=== PATIENT | male | born 1970 | race Caucasian/White ===

== ENCOUNTER 2021-02-06 10:09 | Inpatient (IN) | payer BC ==
[~2021-02-06] VITALS: Ht 170.2 cm; Wt 96.2 kg
[2021-02-06 10:41] LABS: ABSOLUTE BASOPHILS 0.1 thou/uL (0.0-0.2); ABSOLUTE EOSINOPHILS 0.2 thou/uL (0.0-0.7); ABSOLUTE LYMPHOCYTES 1.7 thou/uL (0.8-5.3); ABSOLUTE MONOCYTES 0.5 thou/uL (0.0-1.2); ABSOLUTE NEUTROPHILS 6.6 thou/uL (1.6-8.1); BASOPHILS 0.7 %; EOSINOPHILS 1.9 %; HEMATOCRIT 45.6 % (42.0-52.0); HEMOGLOBIN 15.9 gm/dL (14.0-18.0); LYMPHOCYTES 18.5 %; MCH 28.4 pg (26.0-34.0); MCHC 34.8 g/dL (28.0-37.0); MCV 81.7 fL (80.0-100.0); MONOCYTES 5.9 %; MPV 9.7 fl. (7.2-11.1); NUCLEATED RBCS 0 /100WBC; PLATELET COUNT* 187 thou/uL (150-400); RBC 5.58 mil/uL (4.50-6.00); RDW-CV 13.4 % (10.5-14.5); WBC 9.1 thou/uL (4.0-11.0)
[2021-02-06 10:43] LABS: URINE BILIRUBIN NEGATIVE (Negative); URINE BLOOD NEGATIVE (Negative); URINE CLARITY CLEAR; URINE COLOR YELLOW; URINE GLUCOSE-RANDOM NEGATIVE (Negative); URINE KETONES NEGATIVE (Negative); URINE LEUKOCYTES-REFLEX TRACE (Negative); URINE NITRITE-REFLEX NEGATIVE (Negative); URINE PROTEIN NEGATIVE (Negative); URINE SPECIFIC GRAVITY 1.015 (1.005-1.030); URINE UROBILINOGEN 0.2 E.U./dl (0.2-1.0)
[2021-02-06 10:49] LABS: BACTERIA-REFLEX 1-9 Few /HPF (None Seen); CALCIUM 8.5 mg/dL (8.5-10.1); CASTS None Seen /LPF (None Seen); CREATININE 0.8 mg/dL (0.6-1.3); POTASSIUM 3.7 mmol/L (3.5-5.1); SQUAMOUS 0-3 Few /LPF (0-3); URINE RBC 0-2 Rare /HPF (0-2); URINE WBC-REFLEX 0-5 Rare /HPF (0-5)
[2021-02-06 10:50] LABS: CRYSTALS None Seen /LPF (None Seen)
[2021-02-06 10:53] LABS: ALBUMIN 3.7 g/dL (3.4-5.0); TOTAL BILIRUBIN 0.7 mg/dL (<0.1-1.0); TOTAL PROTEIN 7.4 g/dL (6.4-8.2)
[2021-02-06] MEDS ORDERED: PREDNISONE50 MG PO (13:16)
[2021-02-06] MEDS ORDERED: FLEXERIL PO (13:16)
[2021-02-06] MEDS ORDERED: BACTRIM DS TAB1 EAC1 PO (13:16)
[2021-02-06] MEDS ORDERED: HYDROCODON-ACE1 EAC7 PO (13:16)
[2021-02-06] MEDS ORDERED: IBUPROFEN 800800 M1 PO (13:16)
--- NOTE | 2021-02-06 13:45 | EKG ---
[place] [address] ELECTROCARDIOGRAM REPORT Name: CHINYERE ACOSTA Room: [facility]#: [id number] Admission: 02/06/21 Attend Phys: Discharge: Date of : 74 Date of Service: 02/06/21 1024 Report #: [id number] THIS REPORT FOR: //name// [facility] ED Test Date: 2021-02-06 Test Time: 10:24:31 Pat Name: CHINYERE ACOSTA Department: Room: Gender: [employer]: : [id number] Requested By: Juan Luis Whitlock Order Number: [id number] MD: Festus Gustafson Measurements Intervals [place] Rate: 80 P: -2 MN: 110 QRS: -8 QRSD: 102 T: 3 QT: 382 QTc: 441 Interpretive Statements Sinus rhythm Borderline short [place] interval RSR' in V1 or V2, right VCD or RVH No previous ECG available for comparison Electronically Signed On 02-06-2021 13:45:06 CDT by Festus Gustafson [email or web address] <ELECTRONICALLY SIGNED> By: Festus Gustafson MD, [facility] 02/06/21 1345 1024 1024 Festus Gustafson MD, [facility] /EPI
[2021-02-06 18:27] VITALS: BP 138/72
[2021-02-06 18:45] VITALS: BP 145/97
--- NOTE | 2021-02-06 18:45 | NUR ---
PATIENT ARRIVED FROM ER AT THIS TIME. PATIENT SETTLED TO ROOM, AT BEDSIDE. VITALS TAKEN AND DOCUMENTED. PATIENT HAS PAIN TO BACK 7/10. CALL LIGHT IS WITH IN REACH. WILL CONTINUE TO MONITOR.
[2021-02-06 20:00] VITALS: BP 127/85
[2021-02-07 00:28] VITALS: BP 138/79
[2021-02-07 08:20] VITALS: BP 147/94
--- NOTE | 2021-02-07 14:42 | NUR ---
Pt is A&O. Resides at home with out of state. Independent and active. No DME. No hx of HH or SNF. Anticipate dc to home tomorrow, no needs anticipated.
[2021-02-07 15:26] VITALS: BP 158/96
--- NOTE | 2021-02-07 18:30 | NUR ---
PT ALERT AND ORIENTED X 4. PT GIVEN INSULIN PER SLIDING SCALE. PT UP STEADY WITHOUT ASSIST. PT UP WALKING IN THE HALLS THIS SHIFT. PT C/O BACK PAIN THAT RADIATES DOWN BOTH LEGS AT TIMES. PT OBTAINED RELIEF WITH DIFFERENT POSITIONING AND STRETCHING ALONG WITH PRN MEDS. REMAINS AT BEDSIDE. CALL LIGHT WITHIN REACH. WILL CONTINUE TO MONITOR.
[2021-02-07 20:00] VITALS: BP 149/89
[2021-02-08 02:06] LABS: GLYCOHEMOGLOBIN (HGB A1C) 5.6 % (4.8-5.6)
--- NOTE | 2021-02-08 04:24 | NUR ---
PT A&O X 4. MEDS GIVEN ORDERED. PAIN MANAGED WITH FLEXERIL AND NORCO. UP INDEPENDENTLY. AT BEDSIDE. CALL LIGHT WITHIN REACH. WILL CONTINUE TO MONITOR.
[2021-02-08 08:10] VITALS: BP 164/95
[2021-02-08] MEDS ORDERED: LIDODERM1 EACH TOP (11:51)
[2021-02-08] MEDS ORDERED: PREDNISONE 20 M20 MG PO (11:51)
[2021-02-08] MEDS ORDERED: LEVOFLOXACIN500 MG PO (11:51)
[2021-02-08 12:12] VITALS: BP 164/95
[2021-02-08 12:17] VITALS: BP 164/95
--- NOTE | 2021-02-08 13:09 | NUR ---
PT ALERT AND ORIENTED X 4. AT BEDSIDE. PT GIVEN INFORMATION ON MANAGING BLOOD SUGARS DUE TO ELEVATED A1C RESULT. PT GIVEN PAPER RX FOR PERCOCET. PT INFORMED TO TAKE LIDOCAINE PATCH OFF THIS EVENING. PT ALSO INSTRUCTED TO NOT DRIVE WHILE ON NARCOTIC MEDICATION. STATES UNDERSTANDING. IV TAKEN OUT INTACT. PT WORKED WITH PHYSICAL THERAPY THIS AM. PT GIVEN RESOUCES FOR BACK PAIN. NO COMPLAINTS AT THIS TIME. PT STEADILY AMBULATORY WITHOUT ASSIST. STATES UNDERSTANDING TO INSTRUCTIONS.
[2021-02-08 13:13] VITALS: BP 164/95
== END 2021-02-08 13:14 | disposition home or self-care (01) | DRG 552 ==
LOC: M.ERS 10:09 → M.TBA-ER 13:36 → M.ORTHSURG 13:36
PROVIDERS: Emergency Medicine Emergency Medical Services; ADMIT Internal Medicine; ATTEND Internal Medicine
DX: M54.30 Sciatica, unspecified side (principal); N39.0 Urinary tract infection, site not specified; R73.9 Hyperglycemia, unspecified; Z20.822 Contact with and (suspected) exposure to COVID-19; Z91.013 Allergy to seafood